=== PATIENT | male | born 1970 | race Caucasian/White ===

== ENCOUNTER 2019-08-22 13:19 | Emergency (ER) | payer OTHER ==
[~2019-08-22] VITALS: Ht 167.6 cm; Wt 117.0 kg
[2019-08-22 13:40] VITALS: Ht 167.6 cm; Wt 117.0 kg
[2019-08-22 17:13] VITALS: BP 131/75
== END 2019-08-22 17:13 | disposition home or self-care (01) ==
LOC: ED 13:19
DX: S93.601A Unspecified sprain of right foot, initial encounter (principal); W18.2XXA Fall in (into) shower or empty bathtub, initial encounter; Y93.89 Activity, other specified; Y92.091 Bathroom in other non-institutional residence as the place of occurrence of the external cause; Y99.8 Other external cause status

== ENCOUNTER 2020-09-16 18:23 | Inpatient (IN) | payer OTHER, SELFPAY ==
[~2020-09-16] VITALS: Ht 180.3 cm; Wt 111.0 kg
[2020-09-16 19:26] LABS: BASOPHIL % 0.5 % (0.2-1.5); PLATELET COUNT 276 x10^3mcL (152-348)
[2020-09-16 19:37] LABS: CALCIUM 8.9 mg/dL (8.5-10.1); CARBON DIOXIDE 25.3 mmol/L (21-32); CHLORIDE SERUM 103 mmol/L (98-107); GFR1 > 60 mL/min; GLUCOSE SERUM 142 mg/dL (74-106); SODIUM SERUM 141 mmol/L (136-145)
[2020-09-16 19:42] LABS: ALKALINE PHOSPHATASE 72 U/L (46-116); ALT/SGPT 39 U/L (16-63); AST/SGOT 35 U/L (15-37); BILIRUBIN TOTAL 0.51 mg/dL (0.20-1.00); LACTIC DEHYDROGENASE (LDH) 445 U/L (100-190); TOTAL PROTEIN, SERUM 7.5 g/dL (6.4-8.2)
[2020-09-16 19:45] LABS: ALBUMIN 2.5 g/dL (3.4-5.0)
[2020-09-16 19:52] LABS: rbc morphology (normal/abnorm) NORMAL (NORMAL)
[2020-09-16 20:32] VITALS: Ht 180.3 cm; Wt 111.0 kg
[2020-09-16 22:11] VITALS: BP 136/96
[2020-09-17 00:12] LABS: CHOLESTEROL/HDL RATIO 6.8
[2020-09-17 00:22] LABS: FREE T4 1.66 ng/dL (0.76-1.46); FREE THYROXINE INDEX 3.7 ug/dL (1.4-4.5); T4(THYROXINE) 12.4 ug/dL (4.7-13.3)
[2020-09-17 01:31] LABS: T3 TOTAL 0.72 ng/mL
[2020-09-17 08:48] LABS: BASOPHIL % 0.2 % (0.2-1.5); PLATELET COUNT 285 x10^3mcL (152-348)
[2020-09-17 12:15] LABS: CALCIUM 8.8 mg/dL (8.5-10.1); CARBON DIOXIDE 26.3 mmol/L (21-32); CHLORIDE SERUM 104 mmol/L (98-107); CREATININE SERUM 1.1 mg/dL (0.7-1.3); GFR1 > 60 mL/min; GLUCOSE SERUM 180 mg/dL (74-106); POTASSIUM SERUM 4.5 mmol/L (3.5-5.1); SODIUM SERUM 140 mmol/L (136-145)
[2020-09-17 15:58] LABS: rbc morphology (normal/abnorm) NORMAL (NORMAL)
[2020-09-18 07:33] LABS: BASOPHIL % 0.2 % (0.2-1.5); PLATELET COUNT 367 x10^3mcL (152-348); RED CELL DISTRIBUTION WIDTH 13.2 % (12.1-16.2)
[2020-09-18 08:38] LABS: rbc morphology (normal/abnorm) NORMAL (NORMAL)
[2020-09-18 09:31] LABS: CALCIUM 9.2 mg/dL (8.5-10.1); CARBON DIOXIDE 26.2 mmol/L (21-32); CHLORIDE SERUM 104 mmol/L (98-107); GFR1 > 60 mL/min; GLUCOSE SERUM 158 mg/dL (74-106); MAGNESIUM 2.8 mg/dL (1.8-2.4); PHOSPHOROUS 3.4 mg/dL (2.5-4.9); POTASSIUM SERUM 4.4 mmol/L (3.5-5.1); SODIUM SERUM 141 mmol/L (136-145)
[2020-09-18 17:04] LABS: BILIRUBIN DIRECT 0.16 mg/dL (0.0-0.2); BILIRUBIN TOTAL 0.31 mg/dL (0.20-1.00); TOTAL PROTEIN, SERUM 6.3 g/dL (6.4-8.2)
[2020-09-18 17:11] LABS: ALBUMIN 2.5 g/dL (3.4-5.0)
[2020-09-19 09:27] LABS: BILIRUBIN DIRECT 0.48 mg/dL (0.0-0.2); BILIRUBIN TOTAL 1.09 mg/dL (0.20-1.00); TOTAL PROTEIN, SERUM 7.1 g/dL (6.4-8.2)
[2020-09-19 10:11] LABS: ALBUMIN 2.3 g/dL (3.4-5.0)
[2020-09-20 07:09] LABS: BASOPHIL % 0.1 % (0.2-1.5); RED CELL DISTRIBUTION WIDTH 13.1 % (12.1-16.2)
[2020-09-20 07:12] LABS: PLATELET COUNT 429 x10^3mcL (152-348)
[2020-09-20 07:52] VITALS: BP 127/85
[2020-09-20 08:00] VITALS: BP 125/78
[2020-09-20 08:23] LABS: CALCIUM 8.6 mg/dL (8.5-10.1); CARBON DIOXIDE 23.8 mmol/L (21-32); CHLORIDE SERUM 100 mmol/L (98-107); GFR1 > 60 mL/min; GLUCOSE SERUM 125 mg/dL (74-106); POTASSIUM SERUM 4.4 mmol/L (3.5-5.1); SODIUM SERUM 136 mmol/L (136-145)
[2020-09-20 08:56] LABS: rbc morphology (normal/abnorm) NORMAL (NORMAL)
[2020-09-20 09:09] LABS: BILIRUBIN DIRECT 0.42 mg/dL (0.0-0.2); BILIRUBIN TOTAL 0.91 mg/dL (0.20-1.00)
[2020-09-20 09:16] LABS: ALBUMIN 2.2 g/dL (3.4-5.0)
[2020-09-20 12:00] VITALS: BP 133/80
[2020-09-20 16:00] VITALS: BP 134/85
[2020-09-20 19:35] VITALS: BP 123/78
[2020-09-21 00:50] VITALS: BP 126/80
[2020-09-21 04:42] VITALS: BP 129/76
[2020-09-21 07:36] LABS: BASOPHIL % 0.2 % (0.2-1.5); RED CELL DISTRIBUTION WIDTH 13.1 % (12.1-16.2)
[2020-09-21 08:02] LABS: ALKALINE PHOSPHATASE 95 U/L (46-116); ALT/SGPT 38 U/L (16-63); AST/SGOT 35 U/L (15-37); BILIRUBIN DIRECT 0.45 mg/dL (0.0-0.2); BILIRUBIN TOTAL 0.99 mg/dL (0.20-1.00); CALCIUM 8.9 mg/dL (8.5-10.1); CARBON DIOXIDE 26.9 mmol/L (21-32); CHLORIDE SERUM 104 mmol/L (98-107); CREATININE SERUM 1.1 mg/dL (0.7-1.3); GFR1 > 60 mL/min; GLUCOSE SERUM 129 mg/dL (74-106); POTASSIUM SERUM 4.5 mmol/L (3.5-5.1); SODIUM SERUM 137 mmol/L (136-145); TOTAL PROTEIN, SERUM 6.8 g/dL (6.4-8.2)
[2020-09-21 08:09] LABS: ALBUMIN 2.1 g/dL (3.4-5.0)
[2020-09-21 08:40] VITALS: BP 128/71
[2020-09-21 09:13] LABS: PLATELET COUNT 434 x10^3mcL (152-348)
[2020-09-21 11:52] LABS: rbc morphology (normal/abnorm) NORMAL (NORMAL)
[2020-09-21 12:00] VITALS: BP 130/67
[2020-09-21 16:01] VITALS: BP 123/59
[2020-09-21 19:50] VITALS: BP 135/82
[2020-09-22 00:15] VITALS: BP 135/77
[2020-09-22 03:56] VITALS: BP 156/76
[2020-09-22 08:00] VITALS: BP 144/77
[2020-09-22 08:17] LABS: BILIRUBIN TOTAL 1.4 mg/dL (0.20-1.00); TOTAL PROTEIN, SERUM 6.9 g/dL (6.4-8.2)
[2020-09-22 08:46] LABS: BILIRUBIN DIRECT 0.8 mg/dL (0.0-0.2)
[2020-09-22 08:55] LABS: ALBUMIN 1.9 g/dL (3.4-5.0)
[2020-09-22 12:00] VITALS: BP 130/76
[2020-09-22 15:55] VITALS: BP 134/77
[2020-09-22 19:50] VITALS: BP 133/89
[2020-09-23] VITALS: BP 146/89
[2020-09-23 04:00] VITALS: BP 149/96
[2020-09-23 07:36] LABS: BASOPHIL % 0.1 % (0.2-1.5); RED CELL DISTRIBUTION WIDTH 13.4 % (12.1-16.2)
[2020-09-23 07:46] LABS: PLATELET COUNT 416 x10^3mcL (152-348)
[2020-09-23 07:49] LABS: CALCIUM 8.8 mg/dL (8.5-10.1); CARBON DIOXIDE 26.2 mmol/L (21-32); CHLORIDE SERUM 101 mmol/L (98-107); CREATININE SERUM 0.9 mg/dL (0.7-1.3); GFR1 > 60 mL/min; GLUCOSE SERUM 135 mg/dL (74-106); POTASSIUM SERUM 4.6 mmol/L (3.5-5.1); SODIUM SERUM 137 mmol/L (136-145)
[2020-09-23 08:30] VITALS: BP 141/89
[2020-09-23 10:31] LABS: rbc morphology (normal/abnorm) NORMAL (NORMAL)
[2020-09-23 12:00] VITALS: BP 140/80
[2020-09-23 15:15] VITALS: BP 135/81
[2020-09-23 19:50] VITALS: BP 138/81
[2020-09-24] VITALS (10 sets, daily range): BP systolic 81–175; BP diastolic 52–117
[2020-09-24 06:17] LABS: BASOPHIL % 0.3 % (0.2-1.5); RED CELL DISTRIBUTION WIDTH 13.4 % (12.1-16.2)
[2020-09-24 06:37] LABS: CALCIUM 8.4 mg/dL (8.5-10.1); CARBON DIOXIDE 26.3 mmol/L (21-32); CHLORIDE SERUM 100 mmol/L (98-107); CREATININE SERUM 0.9 mg/dL (0.7-1.3); GFR1 > 60 mL/min; GLUCOSE SERUM 145 mg/dL (74-106); POTASSIUM SERUM 4.6 mmol/L (3.5-5.1); SODIUM SERUM 135 mmol/L (136-145)
[2020-09-24 06:56] LABS: PLATELET COUNT 411 x10^3mcL (152-348)
[2020-09-24 08:21] LABS: rbc morphology (normal/abnorm) NORMAL (NORMAL)
[2020-09-25] VITALS (12 sets, daily range): BP systolic 82–111; BP diastolic 43–69
[2020-09-25 11:30] LABS: BASOPHIL % 0.9 % (0.2-1.5); PLATELET COUNT 341 x10^3mcL (152-348); RED CELL DISTRIBUTION WIDTH 14.2 % (12.1-16.2)
[2020-09-25 12:12] LABS: CREATININE SERUM 2.3 mg/dL (0.7-1.3)
[2020-09-25 12:21] LABS: POTASSIUM SERUM 5.8 mmol/L (3.5-5.1)
[2020-09-25 13:59] LABS: BILIRUBIN DIRECT 1.25 mg/dL (0.0-0.2); BILIRUBIN TOTAL 1.6 mg/dL (0.20-1.00)
[2020-09-25 14:22] LABS: ALBUMIN 1.9 g/dL (3.4-5.0)
[2020-09-26] VITALS (10 sets, daily range): BP systolic 92–104; BP diastolic 57–69
[2020-09-26 05:17] LABS: CALCIUM 7.8 mg/dL (8.5-10.1); CARBON DIOXIDE 21.4 mmol/L (21-32); CREATININE SERUM 3.9 mg/dL (0.7-1.3)
[2020-09-26 05:24] LABS: BASOPHIL % 0.3 % (0.2-1.5); PLATELET COUNT 264 x10^3mcL (152-348)
[2020-09-26 05:30] LABS: RED CELL DISTRIBUTION WIDTH 14.6 % (12.1-16.2)
[2020-09-26 05:35] LABS: C REACTIVE PROTEIN 43.1 mg/dL (<=0.9)
[2020-09-26 05:36] LABS: POTASSIUM SERUM 6.4 mmol/L (3.5-5.1)
[2020-09-26 14:39] LABS: CALCIUM 8.5 mg/dL (8.5-10.1); CARBON DIOXIDE 23.7 mmol/L (21-32)
[2020-09-26 15:00] LABS: CREATININE SERUM 4.9 mg/dL (0.7-1.3); POTASSIUM SERUM 6.3 mmol/L (3.5-5.1)
[2020-09-27] VITALS (10 sets, daily range): BP systolic 72–116; BP diastolic 28–63
[2020-09-27 10:35] LABS: PLATELET COUNT 246 x10^3mcL (152-348)
[2020-09-27 10:52] LABS: CARBON DIOXIDE 24.7 mmol/L (21-32); MAGNESIUM 3.4 mg/dL (1.8-2.4)
[2020-09-27 11:42] LABS: C REACTIVE PROTEIN 22.3 mg/dL (<=0.9)
[2020-09-27 11:43] LABS: RED CELL DISTRIBUTION WIDTH 14.6 % (12.1-16.2)
[2020-09-27 12:38] LABS: CALCIUM 7.7 mg/dL (8.5-10.1)
[2020-09-27 12:41] LABS: POTASSIUM SERUM 7.7 mmol/L (3.5-5.1)
[2020-09-27 12:42] LABS: CREATININE SERUM 7.1 mg/dL (0.7-1.3); PHOSPHOROUS 12.6 mg/dL (2.5-4.9)
[2020-09-27 15:45] LABS: SEGMENTED NEUTROPHILS 92 % (37-75)
[2020-09-27 15:46] LABS: MONOCYTE 5 % (0-7); rbc morphology (normal/abnorm) NORMAL (NORMAL)
== END 2020-09-28 03:47 | DRG 720 ==
LOC: ED 18:23 → IW 21:16 → ED 21:16 → IC 21:16 → DU 21:16 → IW 09-20 07:33
PROVIDERS: Emergency Medicine; Internal Medicine; ADMIT Family Medicine; ATTEND Family Medicine
PROC: 5A09357 Assistance with Respiratory Ventilation, Less than 24 Consecutive Hours, Continuous Positive Airway Pressure (ICD-10-PCS; 2020-09-17)
PROC: XW033E5 Introduction of Remdesivir Anti-infective into Peripheral Vein, Percutaneous Approach, New Technology Group 5 (ICD-10-PCS; principal; 2020-09-18)
PROC: XW13325 Transfusion of Convalescent Plasma (Nonautologous) into Peripheral Vein, Percutaneous Approach, New Technology Group 5 (ICD-10-PCS; 2020-09-20)
PROC: 5A09357 Assistance with Respiratory Ventilation, Less than 24 Consecutive Hours, Continuous Positive Airway Pressure (ICD-10-PCS; 2020-09-20)
PROC: 5A09357 Assistance with Respiratory Ventilation, Less than 24 Consecutive Hours, Continuous Positive Airway Pressure (ICD-10-PCS; 2020-09-22)
PROC: 5A09357 Assistance with Respiratory Ventilation, Less than 24 Consecutive Hours, Continuous Positive Airway Pressure (ICD-10-PCS; 2020-09-23)
PROC: 5A1955Z Respiratory Ventilation, Greater than 96 Consecutive Hours (ICD-10-PCS; 2020-09-24)
PROC: 0BH17EZ Insertion of Endotracheal Airway into Trachea, Via Natural or Artificial Opening (ICD-10-PCS; 2020-09-24)
PROC: 02HV33Z Insertion of Infusion Device into Superior Vena Cava, Percutaneous Approach (ICD-10-PCS; 2020-09-26)
PROC: B548ZZA Ultrasonography of Superior Vena Cava, Guidance (ICD-10-PCS; 2020-09-26)
PROC: 5A1D70Z Performance of Urinary Filtration, Intermittent, Less than 6 Hours Per Day (ICD-10-PCS; 2020-09-26)
PROC: 5A1D70Z Performance of Urinary Filtration, Intermittent, Less than 6 Hours Per Day (ICD-10-PCS; 2020-09-27)
PROC: 5A12012 Performance of Cardiac Output, Single, Manual (ICD-10-PCS; 2020-09-27)
PROC: 02HV33Z Insertion of Infusion Device into Superior Vena Cava, Percutaneous Approach (ICD-10-PCS; 2020-09-27)
PROC: B548ZZA Ultrasonography of Superior Vena Cava, Guidance (ICD-10-PCS; 2020-09-27)
DX: A41.89 Other specified sepsis (principal); U07.1 COVID-19; I21.A1 Myocardial infarction type 2; I46.9 Cardiac arrest, cause unspecified; R65.21 Severe sepsis with septic shock; E43 Unspecified severe protein-calorie malnutrition; J96.01 Acute respiratory failure with hypoxia; I95.9 Hypotension, unspecified; E87.1 Hypo-osmolality and hyponatremia; N17.0 Acute kidney failure with tubular necrosis; E11.65 Type 2 diabetes mellitus with hyperglycemia; J12.89 Other viral pneumonia; E66.9 Obesity, unspecified; Z68.37 Body mass index [BMI] 37.0-37.9, adult; E87.5 Hyperkalemia; N18.6 End stage renal disease; E11.22 Type 2 diabetes mellitus with diabetic chronic kidney disease; B95.7 Other staphylococcus as the cause of diseases classified elsewhere
CPT/HCPCS: 36556; 36600; 82962; 83880; 84439; 85378; G0378; J0456; J0610; J0696; J1100; J1642; J1644; J1650; J1720; J1815; J1885; J2250; J2270; J2370; J2543; J2704; J3010; J3370; J3490; J7030; J7040; J7060; U0003